=== PATIENT | male | born 1975 | race Caucasian/White ===

== ENCOUNTER 2017-10-12 13:44 | Emergency (ER) | payer SELFPAY ==
[2017-10-12 13:58] VITALS: BP 116/63
[2017-10-12] MEDS ORDERED: AMOXICILLIN TR/POT CLAVULANATE 500-125 MG TAB PO ONE (14:04)
[2017-10-12] MEDS ORDERED: AMOXICILLIN TRIHYDRATE 500 MG CAPSULE PO ONE (14:04)
--- NOTE | 2017-10-12 14:05 | ER Document Report ---
HPI - HPI Patient complains to provider of: Dog bite Onset: Just prior to arrival Pain Level: 4 Context: 42-year-old male was bitten by his own pit bull in the left upper arm because the dog was trying to get to a cat. The dog's immunizations are current and the patient's tetanus status is current. He is type I diabetic, no known allergies. Associated Symptoms: None Exacerbated by: Movement Relieved by: Denies Similar symptoms previously: No Recently seen / treated by doctor: No - ROS ROS below otherwise negative: Yes Systems Reviewed and Negative: Yes All other systems reviewed and negative Past Medical History - General Information source: Patient - Social History Smoking Status: Current Every Day Smoker Frequency of alcohol use: None Drug Abuse: None Lives with: Family Family History: Reviewed & Not Pertinent - Medical History Medical History: Negative Surgical Hx: Negative Vertical Provider Document - CONSTITUTIONAL Agree With Documented VS: Yes Exam Limitations: No Limitations General Appearance: No Apparent Distress - INFECTION CONTROL TRAVEL OUTSIDE OF THE [place] IN LAST 30 DAYS: No - HEENT HEENT: Normocephalic - NECK Neck: Supple - MUSCULOSKELETAL/EXTREMETIES Musculoskeletal/Extremeties: Tender - No multiple open puncture wounds to left medial proximal upper arm and a tooth abrasion on the left chest - NEURO Level of Consciousness: Awake, Alert Motor/Sensory: No Motor Deficit, No Sensory Deficit - DERM Adult Front & Back Diagram: 1 - Dog bite area Notes: See above Course - Vital Signs Vital signs: Temp Pulse Resp BP Pulse Ox 98.7 F 98 16 116/63 100 10/12/17 13:57 10/12/17 13:57 10/12/17 13:57 10/12/17 13:57 10/12/17 13:57 Discharge - Discharge Clinical Impression: dogbite left upper chest Dog bite of left upper arm Qualifiers: Encounter type: initial encounter Qualified Code(s): S41.152A - Open bite of left upper arm, initial encounter Condition: Good Disposition: HOME, SELF-CARE Instructions: Animal Bites ([facility]), Augmentin ([facility]) Additional Instructions: Wound check in 48 hours unless it gets worse in the next day and watch her back in the emergency room Shower with soap and water bacitracin and dressing Augmentin until it is gone Prescriptions: Amoxicillin/Potassium Clav [Augmentin 875-125 Tablet] 1 each PO BID #14 tablet Forms: Return to Work
== END 2017-10-12 14:35 | disposition home or self-care (01) ==
LOC: ER 13:44
DX: S41.152A Open bite of left upper arm, initial encounter (principal); S21.152A Open bite of left front wall of thorax without penetration into thoracic cavity, initial encounter; W54.0XXA Bitten by dog, initial encounter; Y92.009 Unspecified place in unspecified non-institutional (private) residence as the place of occurrence of the external cause; F17.210 Nicotine dependence, cigarettes, uncomplicated
CPT/HCPCS: 99283

== ENCOUNTER 2018-03-04 01:33 | Emergency (ER) | payer SELFPAY ==
[2018-03-04] MEDS ORDERED: ONDANSETRON HCL INJ/PF 4 MG/2 ML SDV IV ONE (03:03)
[2018-03-04] MEDS ORDERED: NORMAL SALINE 1000 ML 1,000 ML IV ONE (03:03)
[2018-03-04] MEDS ORDERED: KETOROLAC TROMETHAMINE INJ/PF 30 MG/1 ML SDV IV ONE (03:03)
[2018-03-04 03:15] LABS: ABSOLUTE BASOPHILS # (AUTO) 0.1 10^3/uL (0.0-0.2); ABSOLUTE EOSINOPHILS # (AUTO) 0.1 10^3/uL (0.0-0.6); ABSOLUTE LYMPHOCYTES (AUTO) 2.1 10^3/uL (0.5-4.7); ABSOLUTE MONOCYTES (AUTO) 0.6 10^3/uL (0.1-1.4); ABSOLUTE NEUT (AUTO) 3.5 10^3/uL (1.7-8.2); BASOPHILS % (AUTO) 1.1 % (0-2); EOSINOPHILS % (AUTO) 1.8 % (0-6); HEMATOCRIT 38.3 % (37.9-51.0); HEMOGLOBIN 12.7 g/dL (13.5-17.0); LYMPHOCYTES % (AUTO) 33.4 % (13-45); MEAN CORPUSCULAR HEMOGLOBIN 28.2 pg (27.0-33.4); MEAN CORPUSCULAR HGB CONC 33.2 g/dL (32.0-36.0); MEAN CORPUSCULAR VOLUME 85 fl (80-97); MONOCYTES % (AUTO) 9.1 % (3-13); PLATELET COUNT 199 10^3/uL (150-450); RED BLOOD COUNT 4.52 10^6/uL (4.35-5.55); RED CELL DISTRIBUTION WIDTH 15.2 % (11.5-14.0); SEGMENTED NEUTROPHILS % (AUTO) 54.6 % (42-78); TOTAL CELLS COUNTED % (AUTO) 100 %; WHITE BLOOD COUNT 6.4 10^3/uL (4.0-10.5)
--- NOTE | 2018-03-04 03:19 | ER Document Report ---
ED GI/ - General Chief Complaint: Possible Kidney Stone Stated Complaint: FLANK PAIN Time Seen by Provider: 03/04/18 02:40 Mode of Arrival: Ambulatory Information source: Patient TRAVEL OUTSIDE OF THE [place] IN LAST 30 DAYS: No - HPI Patient complains to provider of: Flank pain, Vomiting Onset: This evening Timing/Duration: Gradual Quality of pain: Achy, Pressure, Sharp Severity at maximum: Severe Severity in ED: Severe Pain Level: 5 Location: Left flank Associated symptoms: Nausea, Vomiting Exacerbated by: Denies Relieved by: Denies Similar symptoms previously: Yes Recently seen / treated by doctor: No Notes: 03/04/18 03:18 Patient is a 42-year-old male presenting to the emergency room complaining of left-sided flank pain that started earlier this evening, he reports associated nausea and vomiting, history of multiple kidney stones in the past with similar symptoms, twice in the past he is required a procedure to assist in removal or passage of a kidney stone, he denies any fevers, no hematuria or difficulty urinating today - Related Data Allergies/Adverse Reactions: No Known Allergies Allergy (Unverified 10/12/17 13:46) Past Medical History - General Information source: Patient - Social History Smoking Status: Former Smoker Chew tobacco use (# tins/day): No Drug Abuse: None Family History: Reviewed & Not Pertinent Patient has suicidal ideation: No Patient has homicidal ideation: No - Past Medical History Cardiac Medical History: Reports: Hx Hypertension Endocrine Medical History: Reports: Hx Diabetes Mellitus Type 1 Renal/ Medical History: Reports: Hx Kidney Stones. Denies: Hx Peritoneal Dialysis Past Surgical History: Reports: Hx Kidney (Renal Surgery) Review of Systems - Review of Systems Constitutional: No symptoms reported EENT: No symptoms reported Cardiovascular: No symptoms reported Respiratory: No symptoms reported Gastrointestinal: See HPI Genitourinary: See HPI Male Genitourinary: No symptoms reported Musculoskeletal: No symptoms reported Skin: No symptoms reported Hematologic/Lymphatic: No symptoms reported Neurological/Psychological: No symptoms reported -: Yes All other systems reviewed and negative Physical Exam - Vital signs Vitals: Temp Pulse BP Pulse Ox 97.6 F 94 109/70 98 03/04/18 02:33 03/04/18 02:33 03/04/18 02:33 03/04/18 02:33 Interpretation: Normal - General General appearance: Alert, Other - Appears in pain In distress: Mild - HEENT Head: Normocephalic, Atraumatic Eyes: Normal Pupils: PERRL - Respiratory Respiratory status: No respiratory distress Chest status: Nontender Breath sounds: Normal Chest palpation: Normal - Cardiovascular Rhythm: Regular Heart sounds: Normal auscultation Murmur: No - Abdominal Inspection: Normal Distension: No distension Bowel sounds: Normal Tenderness: Nontender Organomegaly: No organomegaly - Back Back: Normal, Nontender - Extremities General upper extremity: Normal inspection, Nontender, Normal color, Normal ROM , Normal temperature General lower extremity: Normal inspection, Nontender, Normal color, Normal ROM , Normal temperature, Normal weight bearing. No: Abel's sign - Neurological Neuro grossly intact: Yes Cognition: Normal Orientation: AAOx4 Randa Coma Scale Eye Opening: Spontaneous [place] Coma Scale Verbal: Oriented [place] Coma Scale Motor: Obeys Commands Randa Coma Scale Total: 15 Speech: Normal Motor strength normal: LUE, RUE, LLE, RLE Sensory: Normal - Psychological Associated symptoms: Normal affect, Normal mood - Skin Skin Temperature: Warm Skin Moisture: Dry Skin Color: Normal Course - Re-evaluation Re-evalutation: 03/04/18 06:08 Patient is a 42-year-old male with left-sided flank pain, consistent with kidney stones which she has had multiple times in the past, on labs he was noted to have a elevated creatinine at 1.5, he is unaware of what his creatinine has been in the past, he is passing urine and denies any hematuria, I did discuss with him the possibility of expectant treatment versus imaging today, since he has had 2 kidney stones in the past that have required surgical removal or procedure he requested having a CT performed today, CT scan shows a 3 mm stone in the left mid ureter, patient will be discharged with prescription for medications for symptom control as well as prophylactic antibiotics and advised to follow-up with urology within the next 2-3 days or return if symptoms worsen in any way, patient acknowledges understanding and agreement with this plan - Vital Signs Vital signs: Temp Pulse Resp BP Pulse Ox 97.6 F 94 109/70 98 03/04/18 02:33 03/04/18 02:33 03/04/18 02:33 03/04/18 02:33 - Laboratory Result Diagrams: 03/04/18 02:51 03/04/18 02:51 Laboratory results interpreted by me: 10/17/18 10/17/18 10/17/18 02:51 02:51 02:51 Hgb 12.7 L RDW 15.2 H BUN 25 H Creatinine 1.51 H Est GFR (Non-Af Amer) 51 L Glucose 186 H Alkaline Phosphatase 138 H Urine Glucose (UA) >=500 H - Diagnostic Test Radiology reviewed: Reports reviewed Discharge - Discharge Clinical Impression: Kidney stone on left side Condition: Stable Disposition: HOME, SELF-CARE Instructions: Kidney Stone ([facility]) Additional Instructions: Follow up with your primary care provider and a urologist in one to 2 days. Return to the emergency room immediately if symptoms worsen or any additional concerns. Prescriptions: Cephalexin Monohydrate [Keflex 500 mg Capsule] 500 mg PO BID #20 capsule Hydrocodone/Acetaminophen [Hydrocodon-Acetaminophen 5-325] 1 each PO Q6 #10 tablet Ondansetron [Zofran Odt 4 mg Tablet] 1 - 2 tab PO Q4H #10 tab.rapdis Tamsulosin HCl [Flomax 0.4 mg Cap.sr] 0.4 mg PO DAILY #7 cap.sr.24h Referrals: JEMAL GOMES MD [NO LOCAL MD] - Follow up as needed KARLA STOVALL [NO LOCAL MD] - Follow up as needed
[2018-03-04 03:37] LABS: APPEARANCE,URINE CLEAR; BILIRUBIN,URINE NEGATIVE (NEGATIVE); COLOR,URINE YELLOW; GLUCOSE, URINE >=500 mg/dL (NEGATIVE); KETONES,URINE NEGATIVE (NEGATIVE); LEUKOCYTE ESTERASE,URINE NEGATIVE (NEGATIVE); NITRITE,URINE NEGATIVE (NEGATIVE); PROTEIN,URINE NEGATIVE (NEGATIVE); URINE SPECIFIC GRAVITY 1.026; UROBILINOGEN,URINE NEGATIVE mg/dL (<2.0)
[2018-03-04 03:42] LABS: ALANINE AMINOTRANSFERASE 27 U/L (21-72); ALKALINE PHOSPHATASE 138 U/L (38-126); ANION GAP 12 (5-19); ASPARTATE AMINO TRANSFERASE 29 U/L (17-59); BILIRUBIN,DIRECT 0.2 mg/dL (0.0-0.4); BILIRUBIN,TOTAL 0.5 mg/dL (0.2-1.3); BLOOD UREA NITROGEN 25 mg/dL (7-20); CALCIUM 9.4 mg/dL (8.4-10.2); CARBON DIOXIDE 22 mmol/L (22-30); CHLORIDE 106 mmol/L (98-107); GLUCOSE 186 mg/dL (75-110); LIPASE 49.5 U/L (23-300); POTASSIUM 4.6 mmol/L (3.6-5.0); SODIUM 139.6 mmol/L (137-145); TOTAL PROTEIN 6.8 g/dL (6.3-8.2)
--- NOTE | 2018-03-04 04:48 | RADIOLOGY REPORT (SQ) ---
EXAM DESCRIPTION: CT ABDOMEN WITHOUT IV CONTRAST COMPLETED DATE/TME: 03/04/2018 04:11 CLINICAL HISTORY: L flank pain COMPARISON: None Available. TECHNIQUE: CT of the abdomen and pelvis without IV contrast. Evaluation of the solid organs and vasculature is suboptimal due to lack of IV contrast. DLP: 397.16 mGy-cm FINDINGS: Lung Bases: The visualized lung bases are clear. Bones: No destructive bone lesions identified. Abdomen: Liver: The liver has normal size and density. Gallbladder: No calcified gallstones. Spleen, Pancreas, and Adrenal Glands: The spleen, pancreas, and adrenal glands are unremarkable. Kidneys: There is a 0.3 cm second calculus in the mid left ureter producing moderate left hydroureter and hydronephrosis. Multiple nonobstructing right nephrolithiasis, the largest is in the inferior pole of the right kidney measuring 0.9 cm. Vasculature: Aortoiliac atherosclerosis. Left-sided IVC. Stomach: Small hiatal hernia. Other: No free intraperitoneal air. No free fluid or lymphadenopathy. Pelvis: Bladder: Urinary bladder is unremarkable. Bowel: No dilated loops of large or small bowel. Appendix: The appendix is not definitely identified. Pelvis: The prostate is not enlarged. IMPRESSION: 1. There is a 0.3 cm obstructing calculus in the mid left ureter producing moderate left hydroureter and hydronephrosis. 2. Multiple bilateral nonobstructing right renal calculi. This exam was performed according to our departmental dose-optimization program, which includes automated exposure control, adjustment of the mA and/or kV according to patient size and/or use of iterative reconstruction technique.
[2018-03-04 06:32] VITALS: BP 105/59
== END 2018-03-04 05:30 | disposition home or self-care (01) ==
LOC: ER 01:33
DX: N20.0 Calculus of kidney (principal); R10.9 Unspecified abdominal pain; R11.2 Nausea with vomiting, unspecified; Z87.891 Personal history of nicotine dependence; I10 Essential (primary) hypertension; E10.9 Type 1 diabetes mellitus without complications
CPT/HCPCS: 99284; 96361; 96374; 96375; 36415; 83690; 85025; 80053; 81001; 76380; J1885; J2405; J7030

== ENCOUNTER 2018-03-05 22:06 | Emergency (ER) | payer SELFPAY ==
[2018-03-05 22:47] LABS: APPEARANCE,URINE CLEAR; BILIRUBIN,URINE NEGATIVE (NEGATIVE); COLOR,URINE STRAW; GLUCOSE, URINE >=500 mg/dL (NEGATIVE); KETONES,URINE NEGATIVE (NEGATIVE); LEUKOCYTE ESTERASE,URINE NEGATIVE (NEGATIVE); NITRITE,URINE NEGATIVE (NEGATIVE); PROTEIN,URINE NEGATIVE (NEGATIVE); URINE SPECIFIC GRAVITY 1.007; UROBILINOGEN,URINE NEGATIVE mg/dL (<2.0)
[2018-03-05] MEDS ORDERED: HYDROCODONE/ACETAMINOPHEN 5-325 MG (6 TAB/ER DISP) PO PRN (23:01)
[2018-03-05] MEDS ORDERED: KETOROLAC TROMETHAMINE 60 MG/2 ML SDV IM ONE (23:01)
[2018-03-05] MEDS ORDERED: OXYCODONE-ACETAMINOPHEN 5-325 MG TABLET PO ONE (23:02)
--- NOTE | 2018-03-05 23:04 | ER Document Report ---
ED GI/ - General Chief Complaint: Flank Pain Stated Complaint: FLANK PAINS Time Seen by Provider: 03/05/18 23:01 Mode of Arrival: Ambulatory Information source: Patient TRAVEL OUTSIDE OF THE [place] IN LAST 30 DAYS: No - HPI Patient complains to provider of: Flank pain Onset: Yesterday Timing/Duration: Persistent Quality of pain: Sharp, Stabbing Severity at maximum: Severe Severity in ED: Severe Pain Level: 5 Location: Left flank Associated symptoms: Hematuria, Nausea Exacerbated by: Denies Relieved by: Denies Similar symptoms previously: Yes Recently seen / treated by doctor: Yes Notes: 03/06/18 00:20 Patient is a 42-year-old male who presents to the emergency room today complaining of left-sided flank pain, he has a history of multiple kidney stones in the past and in fact was seen in this department yesterday, a left mid ureteral stone measuring 3 [address] was noted [address] scan, he was given a prescription for small amount of pain medication which he has taken all of already secondary to his pain, his pain persisted and he has not yet passed the stone, he has occasional nausea but no fever, no vomiting, he is able to pass urine without difficulty, has not yet been seen by a urologist, returns today just requesting additional pain medication - Related Data Allergies/Adverse Reactions: No Known Allergies Allergy (Unverified 10/12/17 13:46) Past Medical History - General Information source: Patient - Social History Smoking Status: Unknown if Ever Smoked Family History: Reviewed & Not Pertinent - Past Medical History Cardiac Medical History: Reports: Hx Hypertension Endocrine Medical History: Reports: Hx Diabetes Mellitus Type 1 Renal/ Medical History: Reports: Hx Kidney Stones. Denies: Hx Peritoneal Dialysis Past Surgical History: Reports: Hx Kidney (Renal Surgery) Review of Systems - Review of Systems Constitutional: No symptoms reported EENT: No symptoms reported Cardiovascular: No symptoms reported Respiratory: No symptoms reported Gastrointestinal: Nausea Genitourinary: See HPI Male Genitourinary: No symptoms reported Musculoskeletal: No symptoms reported Skin: No symptoms reported Hematologic/Lymphatic: No symptoms reported Neurological/Psychological: No symptoms reported -: Yes All other systems reviewed and negative Physical Exam - Vital signs Vitals: Temp Pulse Resp BP Pulse Ox 98.2 F 73 18 122/99 H 100 03/05/18 22:06 03/05/18 22:06 03/05/18 22:06 03/05/18 22:06 03/05/18 22:06 - Notes Notes: - General General appearance: Appears in pain, Alert In distress: None - HEENT Head: Normocephalic, Atraumatic Eyes: Normal Conjunctiva: Normal Extraocular movements intact: Yes Eyelashes: Normal Pupils: PERRL - Respiratory Respiratory status: No respiratory distress - Cardiovascular Rhythm: Regular - Abdominal Inspection: Normal - Back Back: Normal - Extremities General upper extremity: Normal inspection General lower extremity: Normal inspection - Neurological Neuro grossly intact: Yes Orientation: AAOx4 [place] Coma Scale Eye Opening: Spontaneous [place] Coma Scale Verbal: Oriented [place] Coma Scale Motor: Obeys Commands [place] Coma Scale Total: 15 - Psychological Associated symptoms: Normal affect, Normal mood - Skin Skin Temperature: Warm Skin Moisture: Dry Skin Color: Normal Course - Re-evaluation Re-evalutation: 03/06/18 00:22 Patient given Toradol and Percocet in the emergency department, reports feeling much better, given approved prescription for a small amount of additional pain medication for at home use, advised to follow-up with a urologist or return if symptoms worsen, patient acknowledges understanding and agreement with this plan - Vital Signs Vital signs: Temp Pulse Resp BP Pulse Ox 98.2 F 53 L 16 100/53 L 99 03/05/18 22:06 03/05/18 23:19 03/05/18 23:19 03/05/18 23:19 03/05/18 23:19 - Laboratory Laboratory results interpreted by me: 03/05/18 22:17 Urine Glucose (UA) >=500 H Urine Blood MODERATE H Discharge - Discharge Clinical Impression: Kidney stone on left side Condition: Stable Disposition: HOME, SELF-CARE Instructions: Kidney Stone ([facility]) Additional Instructions: Follow up with your urologist in 2-3 days. Return to the ER if symptoms worsen or any additional concerns. Prescriptions: Oxycodone HCl/Acetaminophen [Percocet 5-325 mg Tablet] 1 - 2 tab PO ASDIR PRN # 15 tablet PRN Reason:
[2018-03-05 23:21] VITALS: BP 100/53
== END 2018-03-05 23:40 | disposition home or self-care (01) ==
LOC: ER 22:06
DX: N20.0 Calculus of kidney (principal); R10.9 Unspecified abdominal pain; R31.9 Hematuria, unspecified; R11.0 Nausea; I10 Essential (primary) hypertension; E10.9 Type 1 diabetes mellitus without complications; Z87.442 Personal history of urinary calculi
CPT/HCPCS: 99284; 96372; 81001; J1885

== ENCOUNTER 2018-07-01 19:07 | Observation (INO) | payer OTHER ==
[2018-07-01] MEDS ORDERED: ASPIRIN 81 MG TABLET, CHEWABLE PO ONE (19:49)
--- NOTE | 2018-07-01 19:50 | ER Document Report ---
ED Medical Screen (RME) - General Chief Complaint: Palpitations Stated Complaint: SHORTNESS OF BREATH Time Seen by Provider: 07/01/18 19:46 Notes: Chief complaint: Chest pain History of complain:( obtained from----patient) 43 years old male with a extensive history of coronary artery disease. Had IN at 20, had 2 bypass surgery, 7 stents. Presents today with orthopnea, shortness of breath on exertion as well as chest discomfort for the last couple of days. PHYSICAL EXAMINATION: GENERAL: Well-appearing, well-nourished and in no acute distress. HEAD: Atraumatic, normocephalic. EYES: Pupils equal round and reactive to light, extraocular movements intact, conjunctiva are normal. ENT: Nares patent, oropharynx clear without exudates. Moist mucous membranes. NECK: Normal range of motion, supple without lymphadenopathy LUNGS: Breath sounds clear to auscultation bilaterally and equal. No wheezes rales or rhonchi. HEART: Regular rate and rhythm without murmurs ABDOMEN: Soft, nontender, nondistended abdomen. No guarding, no rebound. No masses appreciated. Examination of genitals-deferred Musculoskeletal: Normal range of motion, no pitting or edema. No cyanosis. NEUROLOGICAL: Cranial nerves grossly intact. Normal speech, normal gait. Normal sensory, motor exams PSYCH: Normal mood, normal affect. SKIN: Warm, Dry, normal turgor, no rashes or lesions noted. Dictation was performed using [employer] voice recognition software TRAVEL OUTSIDE OF THE [place] IN LAST 30 DAYS: No - Related Data Allergies/Adverse Reactions: No Known Allergies Allergy (Verified 07/01/18 19:09) Past Medical History - Past Medical History Cardiac Medical History: Reports: Hx Hypertension Endocrine Medical History: Reports: Hx Diabetes Mellitus Type 1 Renal/ Medical History: Reports: Hx Kidney Stones. Denies: Hx Peritoneal Dialysis Past Surgical History: Reports: Hx Kidney (Renal Surgery) Physical Exam - Vital signs Vitals: Temp Pulse Resp BP Pulse Ox 98.6 F 80 14 150/72 H 99 07/01/18 19:24 07/01/18 19:24 07/01/18 19:24 07/01/18 19:24 07/01/18 19:24 Course - Vital Signs Vital signs: Temp Pulse Resp BP Pulse Ox 98.6 F 80 14 150/72 H 99 07/01/18 19:24 07/01/18 19:24 07/01/18 19:24 07/01/18 19:24 07/01/18 19:24
--- NOTE | 2018-07-01 20:39 | RADIOLOGY REPORT (SQ) ---
XR CHEST 1 VIEW HISTORY: Chest pain. COMPARISON: None. FINDINGS: The heart size is normal. The lungs are clear. No pleural effusions or pneumothorax is seen. No acute bony findings. IMPRESSION: No evidence of acute cardiopulmonary disease.
[2018-07-01 21:38] LABS: ABSOLUTE EOSINOPHILS # (AUTO) 0.3 10^3/uL (0.0-0.6); ABSOLUTE LYMPHOCYTES (AUTO) 2.4 10^3/uL (0.5-4.7); ABSOLUTE MONOCYTES (AUTO) 0.6 10^3/uL (0.1-1.4); ABSOLUTE NEUT (AUTO) 4.1 10^3/uL (1.7-8.2); BASOPHILS % (AUTO) 0.7 % (0-2); EOSINOPHILS % (AUTO) 3.4 % (0-6); HEMATOCRIT 37.8 % (37.9-51.0); HEMOGLOBIN 12.4 g/dL (13.5-17.0); LYMPHOCYTES % (AUTO) 32.1 % (13-45); MEAN CORPUSCULAR HEMOGLOBIN 26.8 pg (27.0-33.4); MEAN CORPUSCULAR HGB CONC 32.8 g/dL (32.0-36.0); MEAN CORPUSCULAR VOLUME 82 fl (80-97); MONOCYTES % (AUTO) 8.2 % (3-13); PLATELET COUNT 236 10^3/uL (150-450); RED BLOOD COUNT 4.64 10^6/uL (4.35-5.55); RED CELL DISTRIBUTION WIDTH 14.5 % (11.5-14.0); SEGMENTED NEUTROPHILS % (AUTO) 55.6 % (42-78); TOTAL CELLS COUNTED % (AUTO) 100 %; WHITE BLOOD COUNT 7.4 10^3/uL (4.0-10.5)
[2018-07-01 21:55] LABS: ALANINE AMINOTRANSFERASE 28 U/L (21-72); ALBUMIN 4.6 g/dL (3.5-5.0); ALKALINE PHOSPHATASE 161 U/L (38-126); ANION GAP 10 (5-19); ASPARTATE AMINO TRANSFERASE 43 U/L (17-59); BILIRUBIN,DIRECT 0.3 mg/dL (0.0-0.4); BILIRUBIN,TOTAL 0.6 mg/dL (0.2-1.3); BLOOD UREA NITROGEN 21 mg/dL (7-20); CALCIUM 9.3 mg/dL (8.4-10.2); CARBON DIOXIDE 25 mmol/L (22-30); CHLORIDE 106 mmol/L (98-107); CREATINE KINASE 91 U/L (55-170); GLUCOSE 194 mg/dL (75-110); POTASSIUM 4.3 mmol/L (3.6-5.0); SODIUM 141.4 mmol/L (137-145); TOTAL PROTEIN 7.9 g/dL (6.3-8.2)
[2018-07-01 22:05] LABS: CREATINE KINASE MB 0.61 ng/mL (<4.55)
[2018-07-01 22:06] LABS: TROPONIN I < 0.012 ng/mL
[2018-07-02] MEDS ORDERED: DEXTROSE 50%-WATER 25 GM/50 ML DISP.SYRIN IV PRN ×2 (00:04)
[2018-07-02] MEDS ORDERED: GLUCAGON,HUMAN RECOMB 1 MG INJ IM PRN (00:04)
[2018-07-02] MEDS ORDERED: DEXTROSE 40% GEL 15 GM TUBE PO PRN ×2 (00:04)
[2018-07-02] MEDS ORDERED: MAG HYDROX/AL HYDROX/SIMETH SUSP 30 ML UDCUP PO PRN (00:04)
[2018-07-02] MEDS ORDERED: NITROGLYCERIN 0.4 MG/TAB 25 TAB/BOTTLE SL PRN (00:04)
--- NOTE | 2018-07-02 00:22 | EKG REPORT ---
SEVERITY:- BORDERLINE ECG - SINUS RHYTHM MARKEDLY POSTERIOR QRS AXIS : Confirmed by: Jud Lima MD 02-Jul-2018 00:22:13
[2018-07-02] MEDS ORDERED: ATORVASTATIN CALCIUM 80 MG TABLET PO ONE (00:30)
--- NOTE | 2018-07-02 00:39 | ER Document Report ---
Entered by PIOTR ROLDAN SCRIBE 07/01/18 [id number] Acting as scribe for:ANDREW HICKS DO ED General - General Chief Complaint: Palpitations Stated Complaint: SHORTNESS OF BREATH Time Seen by Provider: 07/01/18 19:46 Mode of Arrival: Ambulatory Information source: Patient Notes: Patient is a 43 year old male with an extensive cardiac history( several bypasses, 7 stents), insulin dependent diabetes presents to the emergency department complaining of chest pain and shortness of breath onset 2 days ago. He states he can not walk to the bathroom and back without becoming short of breath and states his chest pain is located on the left side, anteriorly, does not radiate to his arms, does radiate slightly to the left side of his neck. He also states he is unable to sleep due to his heart racing. He states his symptoms feel similar to his previous heart attack before he had several bypasses. Patient states he follows up with a converter operator in [place], [place]. Patient reports being complaint with all of his medications. TRAVEL OUTSIDE OF THE [place] IN LAST 30 DAYS: No - Related Data Allergies/Adverse Reactions: No Known Allergies Allergy (Verified 07/01/18 19:09) Past Medical History - General Information source: Patient - Social History Smoking Status: Former Smoker Cigarette use (# per day): No Chew tobacco use (# tins/day): No Smoking Education Provided: No Frequency of alcohol use: Social Drug Abuse: Marijuana Family History: Reviewed & Not Pertinent Patient has suicidal ideation: No Patient has homicidal ideation: No - Past Medical History Cardiac Medical History: Reports: Hx Hypertension Endocrine Medical History: Reports: Hx Diabetes Mellitus Type 1 Renal/ Medical History: Reports: Hx Kidney Stones Past Surgical History: Reports: Hx Kidney (Renal Surgery) Review of Systems - Review of Systems Constitutional: No symptoms reported EENT: No symptoms reported Cardiovascular: See HPI, Chest pain Respiratory: See HPI, Short of breath Gastrointestinal: No symptoms reported Genitourinary: No symptoms reported Male Genitourinary: No symptoms reported Musculoskeletal: No symptoms reported Skin: No symptoms reported Hematologic/Lymphatic: No symptoms reported Neurological/Psychological: No symptoms reported Physical Exam - Vital signs Vitals: Temp Pulse Resp BP Pulse Ox 98.6 F 80 14 150/72 H 99 07/01/18 19:24 07/01/18 19:24 07/01/18 19:24 07/01/18 19:24 07/01/18 19:24 - Notes Notes: GENERAL: Alert, interacts well. No acute distress. HEAD: Normocephalic, atraumatic. EYES: Pupils equal, round, and reactive to light. Extraocular movements intact. ENT: Oral mucosa moist, tongue midline. NECK: Full range of motion. Supple. Trachea midline. LUNGS: Clear to auscultation bilaterally, no wheezes, rales, or rhonchi. No respiratory distress. HEART: Regular rate and rhythm. No murmurs, gallops, or rubs. ABDOMEN: Soft, non-tender. Non-distended. Bowel sounds present in all 4 quadrants. EXTREMITIES: Moves all 4 extremities spontaneously. NEUROLOGICAL: Alert and oriented x3. Normal speech. PSYCH: Normal affect, normal mood. SKIN: Warm, dry, normal turgor. No rashes or lesions noted. Course - Re-evaluation Re-evalutation: 07/01/18 23:57 CBC shows mild anemia with hemoglobin 12.4 otherwise unremarkable, BUN and creatinine are elevated at 21 and 1.48, no significant change from February, cardiac enzymes initially negative, chest x-ray shows no acute process, EKG is nonischemic. Given the patient's extensive cardiac history patient was discussed with Dr. Deleon who agrees to place patient on his service on the telemetry care unit as an observation for chest pain rule out. Patient is currently pain-free. - Vital Signs Vital signs: Temp Pulse Resp BP Pulse Ox 98.6 F 65 19 131/61 H 100 07/02/18 02:49 07/02/18 02:49 07/02/18 02:49 07/02/18 02:49 07/02/18 02:49 - Laboratory Result Diagrams: 07/01/18 21:00 07/01/18 21:00 Laboratory results interpreted by me: 07/01/18 07/01/18 21:00 21:00 Hgb 12.4 L Hct 37.8 L MCH 26.8 L RDW 14.5 H BUN 21 H Creatinine 1.48 H Est GFR (Non-Af Amer) 52 L Glucose 194 H Alkaline Phosphatase 161 H - EKG Interpretation by Me Additional EKG results interpreted by me: 07/01/18 23:57 EKG shows sinus rhythm rate of 89, borderline left anterior hemiblock, normal R wave progression, no ST segment elevations or depressions, no T wave inversions per my interpretation. Discharge - Discharge Clinical Impression: Chest pain, rule out acute myocardial infarction Condition: Fair Disposition: ADMITTED OBSERVATION [facility] Admitted: Telemetry Scribe Attestation: 07/02/18 04:24 I personally performed the services described in the documentation, reviewed and edited the documentation which was dictated to the scribe in my presence, and it accurately records my words and actions. I personally performed the services described in the documentation, reviewed and edited the documentation which was dictated to the scribe in my presence, and it accurately records my words and actions.
[2018-07-02 03:57] LABS: CHOLESTEROL 130.54 mg/dL (0-200); TRIGLYCERIDES 67 mg/dL (<150)
[2018-07-02 04:08] LABS: CREATINE KINASE MB 0.47 ng/mL (<4.55); DIRECT LDL 77 mg/dL (<100)
[2018-07-02 04:10] LABS: TROPONIN I < 0.012 ng/mL
--- NOTE | 2018-07-02 06:01 | PDOC H&P ---
History of Present Illness Admission Date/PCP: 07/02/18 00:09 Patient complains of: Chest pain History of Present Illness: KARLA MURILLO is a 43 year old male with a past medical history of poorly controlled type 1 diabetes resulting in coronary artery disease status post several bypasses last 4 years ago and subsequent stenting x7. Patient admits chest pain with palpitations, shortness of breath times 48 hours. His chest pain is described as dull and 2 out of 5 intensity radiating to his left side and neck. He denies recent change of medications, nausea or vomiting, orthopnea, edema or uncontrolled blood pressure. 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 Past Medical History Cardiac Medical History: Reports: Myocardial Infarction - CABG x2, Hypertension Pulmonary Medical History: Reports: None EENT Medical History: Reports: None Neurological Medical History: Reports: None Endocrine Medical History: Reports: Diabetes Mellitus Type 1 Renal/ Medical History: Reports: None Malignancy Medical History: Reports: None GI Medical History: Reports: Gastroesophageal Reflux Disease Musculoskeltal Medical History: Reports: None Skin Medical History: Reports: None Psychiatric Medical History: Reports: None Traumatic Medical History: Reports: None Hematology: Reports: None Infectious Medical History: Reports: None Past Surgical History Past Surgical History: Reports: Cardiac Catheterization, Coronary Artery Bypass Graft, Coronary Stent Social History Information Source: Patient Smoking Status: Former Smoker Frequency of Alcohol Use: None Drugs: None - Advance Directive Resuscitation Status: Full Code Family History Family History: Hypertension Parental Family History Reviewed: Yes Children Family History Reviewed: Yes Sibling(s) Family History Reviewed.: Yes Medication/Allergy Home Medications: Hydrocodone/Acetaminophen [Hydrocodon-Acetaminophen 5-325] 1 each PO Q6 #10 tablet 03/04/18 Ondansetron [Zofran Odt 4 mg Tablet] 1 - 2 tab PO Q4H #10 tab.rapdis 03/04/18 Tamsulosin HCl [Flomax 0.4 mg Cap.sr] 0.4 mg PO DAILY #7 cap.sr.24h 03/04/18 Oxycodone HCl/Acetaminophen [Percocet 5-325 mg Tablet] 1 - 2 tab PO ASDIR PRN #15 tablet 03/05/18 Amlodipine Besylate [Norvasc 2.5 mg Tablet] 2.5 mg PO DAILY 07/02/18 Atorvastatin Calcium [Lipitor 80 mg Tablet] PO DAILY 07/02/18 Clopidogrel Bisulfate [Plavix 75 mg Tablet] DAILY 07/02/18 Isosorbide Dinitrate 30 mg PO DAILY 07/02/18 Lisinopril [Prinivil] 5 mg PO DAILY 07/02/18 Omeprazole BID 07/02/18 Allergies/Adverse Reactions: No Known Allergies Allergy (Verified 07/01/18 19:09) Review of Systems Constitutional: ABSENT: chills, fever(s), headache(s), weight gain, weight loss Eyes: ABSENT: visual disturbances Ears: ABSENT: hearing changes Cardiovascular: ABSENT: chest pain, dyspnea on exertion, edema, orthropnea, palpitations Respiratory: ABSENT: cough, hemoptysis Gastrointestinal: ABSENT: abdominal pain, constipation, diarrhea, hematemesis, hematochezia, nausea, vomiting Genitourinary: ABSENT: dysuria, hematuria Musculoskeletal: ABSENT: joint swelling Integumentary: ABSENT: rash, wounds Neurological: ABSENT: abnormal gait, abnormal speech, confusion, dizziness, focal weakness, syncope Psychiatric: ABSENT: anxiety, depression, homidical ideation, suicidal ideation Endocrine: ABSENT: cold intolerance, heat intolerance, polydipsia, polyuria Hematologic/Lymphatic: ABSENT: easy bleeding, easy bruising Physical Exam Vital Signs: Temp Pulse Resp BP Pulse Ox 98.6 F 65 19 131/61 H 100 07/02/18 02:49 07/02/18 02:49 07/02/18 02:49 07/02/18 02:49 07/02/18 02:49 Intake & Output 06/30/18 07/01/18 07/02/18 11:59 11:59 11:59 Weight 73.5 kg General appearance: PRESENT: no acute distress, well-developed, well-nourished Head exam: PRESENT: atraumatic, normocephalic Eye exam: PRESENT: conjunctiva pink, EOMI, PERRLA. ABSENT: scleral icterus Ear exam: PRESENT: normal external ear exam Mouth exam: PRESENT: moist, tongue midline Neck exam: ABSENT: carotid bruit, JVD, lymphadenopathy, thyromegaly Respiratory exam: PRESENT: clear to auscultation kerrie. ABSENT: rales, rhonchi, wheezes Cardiovascular exam: PRESENT: RRR. ABSENT: diastolic murmur, rubs, systolic murmur Pulses: PRESENT: normal dorsalis pedis pul Vascular exam: PRESENT: normal capillary refill GI/Abdominal exam: PRESENT: normal bowel sounds, soft. ABSENT: distended, guarding, mass, organolmegaly, rebound, tenderness Rectal exam: PRESENT: deferred Extremities exam: PRESENT: full ROM. ABSENT: calf tenderness, clubbing, pedal edema Neurological exam: PRESENT: alert, awake, oriented to person, oriented to place, oriented to time, oriented to situation, CN II-XII grossly intact. ABSENT: motor sensory deficit Psychiatric exam: PRESENT: appropriate affect, normal mood. ABSENT: homicidal ideation, suicidal ideation Skin exam: PRESENT: dry, intact, warm. ABSENT: cyanosis, rash Results Laboratory Results: 07/01/18 21:00 07/01/18 21:00 07/01/18 07/01/18 07/02/18 21:00 21:00 03:21 WBC 7.4 RBC 4.64 Hgb 12.4 L Hct 37.8 L MCV 82 MCH 26.8 L MCHC 32.8 RDW 14.5 H Plt Count 236 Seg Neutrophils % 55.6 Lymphocytes % 32.1 Monocytes % 8.2 Eosinophils % 3.4 Basophils % 0.7 Absolute Neutrophils 4.1 Absolute Lymphocytes 2.4 Absolute Monocytes 0.6 Absolute Eosinophils 0.3 Absolute Basophils 0.0 Sodium 141.4 Potassium 4.3 Chloride 106 Carbon Dioxide 25 Anion Gap 10 BUN 21 H Creatinine 1.48 H Est GFR ( Amer) > 60 Est GFR (Non-Af Amer) 52 L Glucose 194 H Calcium 9.3 Total Bilirubin 0.6 AST 43 ALT 28 Alkaline Phosphatase 161 H Total Protein 7.9 Albumin 4.6 Triglycerides 67 Cholesterol 130.54 LDL Cholesterol Direct 77 VLDL Cholesterol 13.0 HDL Cholesterol 44 07/01/18 07/01/18 07/02/18 21:00 21:00 03:21 Creatine Kinase 91 CK-MB (CK-2) 0.61 0.47 Troponin I < 0.012 < 0.012 Impressions: Chest X-Ray 07/01/18 19:49 IMPRESSION: No evidence of acute cardiopulmonary disease. Assessment & Plan - Diagnosis (1) Chest pain, rule out acute myocardial infarction Is this a current diagnosis for this admission?: Yes Plan: Given history of multiple coronary artery bypass grafting with subsequent stenting I have discussed the case with Dr. Clarence correspondence school teacher at [facility] who recommends outpatient cardiac catheterization if troponin remains negative without recurrence of chest pain. Follow-up serial cardiac enzymes. (2) Diabetes Is this a current diagnosis for this admission?: Yes Plan: Last A1c was 7. Obtain medication reconciliation and resume, follow-up A1c - Time Time Spent: 50 to 70 Minutes
[2018-07-02] MEDS: INSULIN LISPRO 100 UNIT/ML 3 ML VIAL SUBCUT SCH ×2 (08:48→11:35)
[2018-07-02] MEDS ORDERED: DOCUSATE SODIUM 100 MG CAPSULE PO SCH (10:00)
[2018-07-02 11:02] LABS: CREATINE KINASE MB 0.46 ng/mL (<4.55)
[2018-07-02 11:03] LABS: TROPONIN I < 0.012 ng/mL
[2018-07-02] MEDS ORDERED: ACETAMINOPHEN 325 MG TABLET PO PRN (11:59)
--- NOTE | 2018-07-02 13:40 | PDOC DISCHARGE SUMMARY ---
General - Admit/Disc Date/PCP Admission Date/Primary Care Provider: 07/02/18 00:09 Discharge Date: 07/02/18 - Discharge Diagnosis (1) Chest pain Is this a current diagnosis for this admission?: Yes (2) CAD (coronary artery disease) Is this a current diagnosis for this admission?: Yes (3) dm Is this a current diagnosis for this admission?: Yes (4) Diabetes 1.5, managed as type 1 Is this a current diagnosis for this admission?: Yes - Additional Information Resuscitation Status: Full Code Home Medications: Tamsulosin HCl [Flomax 0.4 mg Cap.sr] 0.4 mg PO DAILY #7 cap.sr.24h 03/04/18 Amlodipine Besylate [Norvasc 2.5 mg Tablet] 2.5 mg PO DAILY 07/02/18 Aspirin [Ecotrin] 81 mg PO DAILY 07/02/18 Atorvastatin Calcium [Lipitor 80 mg Tablet] 80 mg PO DAILY 07/02/18 Clopidogrel Bisulfate [Plavix 75 mg Tablet] 75 mg PO DAILY 07/02/18 Insulin Aspart [Novolog Flexpen] See Protocol SQ AC 07/02/18 Insulin Detemir [Levemir] 35 units SQ QHS 07/02/18 Isosorbide Dinitrate 30 mg PO DAILY 07/02/18 Lisinopril [Prinivil] 5 mg PO DAILY 07/02/18 Omeprazole 40 mg PO Q12 07/02/18 History of Present Illness History of Present Illness: KARLA MURILLO is a 43 year old male Hospital Course Hospital Course: This is a very pleasant but unfortunate 43 years old male patient with past medical history of diabetes mellitus type 1 and coronary artery disease status post coronary artery bypass graft and multiple stent placement presented with chief complaint of chest pain. History set of cardiac enzymes are negative patient remained chest pain-free. The on-call attending physician discussed the case with Dr. Lima who recommended outpatient cardiac catheterization if his negative for remain negative and pain remained chest pain-free. This morning I seen patient resting in bed comfortably he is not in pain or distress. I will arrange follow-up with Dr. Lima as outpatient. Physical Exam Vital Signs: Temp Pulse Resp BP Pulse Ox 98.2 F 70 16 130/58 H 99 07/02/18 08:18 07/02/18 08:18 07/02/18 08:18 07/02/18 08:18 07/02/18 08:18 Intake & Output 07/01/18 07/02/18 07/03/18 06:59 06:59 06:59 Weight 72.5 kg General appearance: PRESENT: no acute distress, well-developed, well-nourished Head exam: PRESENT: atraumatic, normocephalic Eye exam: PRESENT: conjunctiva pink, EOMI, PERRLA. ABSENT: scleral icterus Ear exam: PRESENT: normal external ear exam Mouth exam: PRESENT: moist, tongue midline Neck exam: ABSENT: carotid bruit, JVD, lymphadenopathy, thyromegaly Respiratory exam: PRESENT: clear to auscultation kerrie. ABSENT: rales, rhonchi, wheezes Cardiovascular exam: PRESENT: RRR. ABSENT: diastolic murmur, rubs, systolic murmur Pulses: PRESENT: normal dorsalis pedis pul Vascular exam: PRESENT: normal capillary refill GI/Abdominal exam: PRESENT: normal bowel sounds, soft. ABSENT: distended, guarding, mass, organolmegaly, rebound, tenderness Rectal exam: PRESENT: deferred Extremities exam: PRESENT: full ROM. ABSENT: calf tenderness, clubbing, pedal edema Neurological exam: PRESENT: alert, awake, oriented to person, oriented to place, oriented to time, oriented to situation, CN II-XII grossly intact. ABSENT: motor sensory deficit Psychiatric exam: PRESENT: appropriate affect, normal mood. ABSENT: homicidal ideation, suicidal ideation Skin exam: PRESENT: dry, intact, warm. ABSENT: cyanosis, rash Results Laboratory Results: 07/01/18 21:00 07/01/18 21:00 07/01/18 07/01/18 07/02/18 21:00 21:00 03:21 WBC 7.4 RBC 4.64 Hgb 12.4 L Hct 37.8 L MCV 82 MCH 26.8 L MCHC 32.8 RDW 14.5 H Plt Count 236 Seg Neutrophils % 55.6 Lymphocytes % 32.1 Monocytes % 8.2 Eosinophils % 3.4 Basophils % 0.7 Absolute Neutrophils 4.1 Absolute Lymphocytes 2.4 Absolute Monocytes 0.6 Absolute Eosinophils 0.3 Absolute Basophils 0.0 Sodium 141.4 Potassium 4.3 Chloride 106 Carbon Dioxide 25 Anion Gap 10 BUN 21 H Creatinine 1.48 H Est GFR ( Amer) > 60 Est GFR (Non-Af Amer) 52 L Glucose 194 H Calcium 9.3 Total Bilirubin 0.6 AST 43 ALT 28 Alkaline Phosphatase 161 H Total Protein 7.9 Albumin 4.6 Triglycerides 67 Cholesterol 130.54 LDL Cholesterol Direct 77 VLDL Cholesterol 13.0 HDL Cholesterol 44 07/01/18 07/01/18 07/02/18 21:00 21:00 03:21 Creatine Kinase 91 CK-MB (CK-2) 0.61 0.47 Troponin I < 0.012 < 0.012 07/02/18 09:49 Creatine Kinase CK-MB (CK-2) 0.46 Troponin I < 0.012 Impressions: Chest X-Ray 07/01/18 19:49 IMPRESSION: No evidence of acute cardiopulmonary disease. Qualifiers - * PATIENT BEING DISCHARGED WITH ANY OF THE FOLLOWING DIAGNOSIS: No
[2018-07-02 14:45] VITALS: BP 131/61
[2018-07-02] MEDS ORDERED: ATORVASTATIN CALCIUM 80 MG TABLET PO SCH (22:00)
== END 2018-07-02 14:47 | disposition home or self-care (01) ==
LOC: ER 19:07 → EH 07-02 00:09 → 4S 07-02 02:39
PROVIDERS: ADMIT Internal Medicine; ATTEND Internal Medicine
DX: R07.9 Chest pain, unspecified (principal); I25.10 Atherosclerotic heart disease of native coronary artery without angina pectoris; E13.9 Other specified diabetes mellitus without complications; I10 Essential (primary) hypertension; R06.02 Shortness of breath; F12.10 Cannabis abuse, uncomplicated; D64.9 Anemia, unspecified; R06.01 Orthopnea; R00.2 Palpitations; I25.2 Old myocardial infarction; Z79.899 Other long term (current) drug therapy; Z79.82 Long term (current) use of aspirin; Z79.02 Long term (current) use of antithrombotics/antiplatelets; Z79.4 Long term (current) use of insulin; Z95.5 Presence of coronary angioplasty implant and graft; Z95.1 Presence of aortocoronary bypass graft; Z87.891 Personal history of nicotine dependence; Z82.49 Family history of ischemic heart disease and other diseases of the circulatory system; Z23 Encounter for immunization
CPT/HCPCS: 93005; 99285; 36415 ×2; 82553 ×2; 82962; 82550; 85025; 80053; 84484 ×2; 80061; 71045; 90686; 93010; G0008; J1815; 90471

== ENCOUNTER → 2018-07-17 | Outpatient (CLI) | payer OTHER | LOC: OD 13:08 | DX: E11.8 Type 2 diabetes mellitus with unspecified complications (principal) | CPT/HCPCS: 36415; 83036 ==

== ENCOUNTER 2019-11-30 12:17 | Emergency (ER) | payer MEDICARE, MEDICAID ==
[2019-11-30] MEDS ORDERED: KETOROLAC TROMETHAMINE INJ/PF 30 MG/1 ML SDV IV ONE ×2 (12:43→16:00)
[2019-11-30] MEDS ORDERED: NORMAL SALINE 1000 ML 1,000 ML IV ONE (12:43)
--- NOTE | 2019-11-30 12:46 | ER Document Report ---
ED Medical Screen (RME) - General Chief Complaint: Flank Pain Stated Complaint: FLANK PAIN Time Seen by Provider: 11/30/19 12:42 Primary Care Provider: [facility] [Primary Care Provider] - Follow up as needed TRAVEL OUTSIDE OF THE [place] IN LAST 30 DAYS: No - HPI Notes: 11/30/19 12:44 44-year-old male with a history of nephrolithiasis and has had 4 lithotripsies presents emergency room for complaints of left flank pain that started early this morning with nausea and. Patient states pain is 3 out of 5, intermittent and colicky. Reports some nausea when he is having severe pain. 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 Denies any chest pain shortness of breath, trauma to face flank area. Patient states he has had over "100 kidney stones" since he was in his teens. I have greeted and performed a rapid initial assessment of this patient. A comprehensive ED assessment and evaluation of the patient, analysis of test results and completion of the medical decision making process will be conducted by additional ED providers. PHYSICAL EXAMINATION: GENERAL: Well-appearing, well-nourished and in no acute distress. CV: s1, s2 regular LUNGS: No respiratory distress abd: L cva tenderness Musculoskeletal: Normal range of motion NEUROLOGICAL: Normal speech, normal gait. SKIN: Warm, Dry, normal turgor, no rashes or lesions noted. - Related Data Allergies/Adverse Reactions: No Known Allergies Allergy (Verified 07/01/18 19:09) Past Medical History - Past Medical History Cardiac Medical History: Reports: Hx Heart Attack - CABG x2, Hx Hypertension Endocrine Medical History: Reports: Hx Diabetes Mellitus Type 1 Renal/ Medical History: Reports: Hx Kidney Stones. Denies: Hx Peritoneal Dialysis GI Medical History: Reports: Hx Gastroesophageal Reflux Disease Past Surgical History: Reports: Hx Cardiac Catheterization, Hx Coronary Artery Bypass Graft, Hx Coronary Stent, Hx Kidney (Renal Surgery) Physical Exam - Vital signs Vitals: Temp Pulse Resp BP Pulse Ox 98.9 F 94 24 H 120/79 99 11/30/19 12:31 11/30/19 12:31 11/30/19 12:31 11/30/19 12:31 11/30/19 12:31 Course - Vital Signs Vital signs: Temp Pulse Resp BP Pulse Ox 98.9 F 94 24 H 120/79 99 11/30/19 12:31 11/30/19 12:31 11/30/19 12:31 11/30/19 12:31 11/30/19 12:31 Doctor's Discharge - Discharge Referrals: [facility] [Primary [facility]] - Follow up as needed
--- NOTE | 2019-11-30 14:05 | RADIOLOGY REPORT (SQ) ---
EXAM DESCRIPTION: U/S RETROPERITON (RENAL/AORTA) IMAGES COMPLETED DATE/TIME: 11/30/2019 1:56 pm REASON FOR STUDY: L flank pain, hx of kidney stones COMPARISON: CT dated 03/04/2018 TECHNIQUE: Dynamic and static grayscale images acquired of the kidneys and bladder and recorded on P ACS. Additional selected color Doppler and spectral images recorded. LIMITATIONS: None. FINDINGS: RIGHT KIDNEY: Normal size. Normal echogenicity. No solid or suspicious masses. No h ydronephrosis. Multiple nonobstructing right renal calculi. LEFT KIDNEY: Normal size. Normal echogenicity. No solid or suspicious masses. Dilatation of th e left renal pelvis. Multiple small stones. The largest measures 6.6 mm. BLADDER: No masses. OTHER FINDINGS: No other significant finding. IMPRESSION: Mild left-sided hydronephrosis. Obstructing lesion and/or stone is not identified. Cor relation with CT may be beneficial. Nonobstructing stones in both kidneys. TECHNICAL DOCUMENTATION: JOB ID: [id number] [employer]- All Rights Reserved Reading location - IP/workstation name: [email or web address]
[2019-11-30 14:06] LABS: ABSOLUTE EOSINOPHILS # (AUTO) 0.1 10^3/uL (0.0-0.6); ABSOLUTE LYMPHOCYTES (AUTO) 1.4 10^3/uL (0.5-4.7); ABSOLUTE MONOCYTES (AUTO) 0.5 10^3/uL (0.1-1.4); ABSOLUTE NEUT (AUTO) 5.5 10^3/uL (1.7-8.2); BASOPHILS % (AUTO) 0.4 % (0-2); HEMATOCRIT 45.3 % (37.9-51.0); HEMOGLOBIN 15.2 g/dL (13.5-17.0); LYMPHOCYTES % (AUTO) 19.1 % (13-45); MEAN CORPUSCULAR HEMOGLOBIN 30.6 pg (27.0-33.4); MEAN CORPUSCULAR HGB CONC 33.6 g/dL (32.0-36.0); MEAN CORPUSCULAR VOLUME 91 fl (80-97); MONOCYTES % (AUTO) 6.9 % (3-13); PLATELET COUNT 193 10^3/uL (150-450); RED BLOOD COUNT 4.98 10^6/uL (4.35-5.55); RED CELL DISTRIBUTION WIDTH 14.2 % (11.5-14.0); SEGMENTED NEUTROPHILS % (AUTO) 72.6 % (42-78); TOTAL CELLS COUNTED % (AUTO) 100 %; WHITE BLOOD COUNT 7.5 10^3/uL (4.0-10.5)
[2019-11-30 14:09] LABS: APPEARANCE,URINE CLEAR; BILIRUBIN,URINE NEGATIVE (NEGATIVE); COLOR,URINE STRAW; GLUCOSE, URINE 150 mg/dL (NEGATIVE); KETONES,URINE NEGATIVE (NEGATIVE); LEUKOCYTE ESTERASE,URINE NEGATIVE (NEGATIVE); NITRITE,URINE NEGATIVE (NEGATIVE); PROTEIN,URINE NEGATIVE (NEGATIVE); URINE SPECIFIC GRAVITY 1.008; UROBILINOGEN,URINE NEGATIVE mg/dL (<2.0)
[2019-11-30 14:29] LABS: ALBUMIN 4.2 g/dL (3.5-5.0); ALKALINE PHOSPHATASE 132 U/L (38-126); ANION GAP 6 (5-19); ASPARTATE AMINO TRANSFERASE 29 U/L (17-59); BILIRUBIN,TOTAL 0.8 mg/dL (0.2-1.3); BLOOD UREA NITROGEN 16 mg/dL (7-20); CALCIUM 9.7 mg/dL (8.4-10.2); CARBON DIOXIDE 29 mmol/L (22-30); CHLORIDE 104 mmol/L (98-107); GLUCOSE 170 mg/dL (75-110); TOTAL PROTEIN 7.3 g/dL (6.3-8.2)
[2019-11-30] MEDS ORDERED: MORPHINE SULFATE 10 MG/ML INJ IV ONE (15:34)
--- NOTE | 2019-11-30 15:39 | ER Document Report ---
ED GI/ - General Chief Complaint: Flank Pain Stated Complaint: FLANK PAIN Time Seen by Provider: 11/30/19 12:42 Primary Care Provider: [facility] [Provider Group] - Follow up in 3-5 days [facility] [Primary Care Provider] - Follow up as needed Mode of Arrival: Ambulatory Information source: Patient Notes: Patient presents complaint of left flank pain that radiates around to left lower quadrant that started today. Patient reports nausea. Patient denies any fever. Patient states he does have a history of kidney stones and is concerned about this today. Patient has not seen an urologist in many years. TRAVEL OUTSIDE OF THE [place] IN LAST 30 DAYS: No - HPI Patient complains to provider of: Abdominal pain, Flank pain. No: Vomiting Onset: This morning Timing/Duration: Persistent Quality of pain: Sharp Pain Level: 4 Location: LLQ, Left flank Associated symptoms: Nausea. denies: Blood in stool, Constipation, Diarrhea, Dysuria, Urinary hesitancy, Urinary frequency, Urinary retention, Urinary urgency, Vomiting Exacerbated by: Denies Relieved by: Denies Similar symptoms previously: Yes Recently seen / treated by doctor: No - Related Data Allergies/Adverse Reactions: No Known Allergies Allergy (Verified 07/01/18 19:09) Past Medical History - General Information source: Patient - Social History Smoking Status: Never Smoker Frequency of alcohol use: None Drug Abuse: None Occupation: None Lives with: Family Family History: Hypertension - Past Medical History Cardiac Medical History: Reports: Hx Coronary Artery Disease, Hx Heart Attack - CABG x2, Hx Hypertension Endocrine Medical History: Reports: Hx Diabetes Mellitus Type 1 Renal/ Medical History: Reports: Hx Kidney Stones. Denies: Hx Peritoneal Dialysis GI Medical History: Reports: Hx Gastroesophageal Reflux Disease Past Surgical History: Reports: Hx Cardiac Catheterization, Hx Coronary Artery Bypass Graft, Hx Coronary Stent, Hx Kidney (Renal Surgery) Review of Systems - Review of Systems Constitutional: No symptoms reported. denies: Fever EENT: No symptoms reported Cardiovascular: No symptoms reported. denies: Chest pain Respiratory: No symptoms reported. denies: Cough Gastrointestinal: Abdominal pain, Nausea. denies: Vomiting Genitourinary: Flank pain. denies: Dysuria, Hematuria Male Genitourinary: No symptoms reported Musculoskeletal: Back pain Skin: No symptoms reported Hematologic/Lymphatic: No symptoms reported Neurological/Psychological: No symptoms reported Physical Exam - Vital signs Vitals: Temp Pulse Resp BP Pulse Ox 98.9 F 94 24 H 120/79 99 11/30/19 12:31 11/30/19 12:31 11/30/19 12:31 11/30/19 12:31 11/30/19 12:31 - General General appearance: Appears well, Alert In distress: None - HEENT Head: Normocephalic, Atraumatic Eyes: Normal Conjunctiva: Normal Nasal: Normal Mouth/Lips: Normal Mucous membranes: Normal Neck: Normal, Supple. No: Lymphadenopathy - Respiratory Respiratory status: No respiratory distress Chest status: Nontender Breath sounds: Normal. No: Rales, Rhonchi, Stridor, Wheezing Chest palpation: Normal - Cardiovascular Rhythm: Regular Heart sounds: S1 appreciated, S2 appreciated Murmur: No - Abdominal Inspection: Normal Distension: No distension Bowel sounds: Normal Tenderness: Tender - Left lower quadrant Organomegaly: No organomegaly - Back Back: CVA tenderness - Left-sided - Extremities General upper extremity: Normal inspection, Nontender, Normal strength General lower extremity: Normal inspection, Nontender, Normal strength - Neurological Neuro grossly intact: Yes Cognition: Normal Randa Coma Scale Eye Opening: Spontaneous Randa Coma Scale Verbal: Oriented [place] Coma Scale Motor: Obeys Commands Randa Coma Scale Total: 15 - Psychological Associated symptoms: Normal affect, Normal mood - Skin Skin Temperature: Warm Skin Moisture: Dry Skin Color: Normal Course - Re-evaluation Re-evalutation: 11/30/19 16:41 Patient reports that pain is improved at this time. Patient states that pain is improved at this time. Patient reports nausea improved as well. Patient with CT report findings consistent with a recently passed stone. Patient without any UTI or leukocytosis. Patient does have mild elevation of creatinine although he chronically has mildly elevated creatinine and today's results are improved in comparison. Patient encouraged to follow-up with urology for further evaluation as he does have incidental right intrarenal stones as well. - Vital Signs Vital signs: Temp Pulse Resp BP Pulse Ox 98.7 F 78 18 126/76 H 99 11/30/19 17:19 11/30/19 17:19 11/30/19 17:19 11/30/19 17:19 11/30/19 17:19 - Laboratory Result Diagrams: 11/30/19 13:15 11/30/19 13:15 Laboratory results interpreted by me: 11/30/19 11/30/19 11/30/19 13:15 13:15 13:15 RDW 14.2 H Creatinine 1.35 H Est GFR (MDRD) Non-Af 57 L Glucose 170 H Alkaline Phosphatase 132 H Urine Glucose (UA) 150 H Urine Blood MODERATE H 11/30/19 16:41 Labs- All tests 24 hr 11/30/19 11/30/19 11/30/19 13:15 13:15 13:15 WBC 7.5 RBC 4.98 Hgb 15.2 Hct 45.3 MCV 91 MCH 30.6 MCHC 33.6 RDW 14.2 H Plt Count 193 Lymph % (Auto) 19.1 [place] % (Auto) 6.9 Eos % (Auto) 1.0 Baso % (Auto) 0.4 Absolute Neuts (auto) 5.5 Absolute Lymphs (auto) 1.4 Absolute Monos (auto) 0.5 Absolute Eos (auto) 0.1 Absolute Basos (auto) 0.0 Seg Neutrophils % 72.6 Sodium 138.5 Potassium 5.0 Chloride 104 Carbon Dioxide 29 Anion Gap 6 BUN 16 Creatinine 1.35 H Est GFR ( Amer) > 60 Est GFR (MDRD) Non-Af 57 L Glucose 170 H Calcium 9.7 Total Bilirubin 0.8 Direct Bilirubin 0.0 Neonat Total Bilirubin Not Reportable Neonat Direct Bilirubin Not Reportable Neonat Indirect Bili Not Reportable AST 29 ALT 23 Alkaline Phosphatase 132 H Total Protein 7.3 Albumin 4.2 Urine Color STRAW Urine Appearance CLEAR Urine pH 6.0 Ur Specific Flora 1.008 Urine Protein NEGATIVE Urine Glucose (UA) 150 H Urine Ketones NEGATIVE Urine Blood MODERATE H Urine Nitrite NEGATIVE Urine Bilirubin NEGATIVE Urine Urobilinogen NEGATIVE Ur Leukocyte Esterase NEGATIVE Urine WBC (Auto) 1 Urine RBC (Auto) 16 Urine Mucus (Auto) RARE Urine Ascorbic Acid NEGATIVE - Diagnostic Test Radiology reviewed: Reports reviewed Discharge - Discharge Clinical Impression: Flank pain, Kidney stone Condition: Stable Disposition: HOME, SELF-CARE Additional Instructions: Return immediately for any new or worsening symptoms Followup with your primary care provider, call tomorrow to make a followup appointment Follow-up with urology for further evaluation KIDNEY STONE: You are passing or have passed a kidney stone. These stones are usually due to increased calcium or uric acid concentrations in your urine. Stones within the kidney itself are not painful. The pain occurs as the stone leaves the kidney to pass down the long tube, called the ureter, leading to the bladder. If the stone is small, it will usually pass by itself. Most patients can pass the stone at home. You will usually receive medications for pain, nausea or vomiting, and sometimes a medication to assist in passing the kidney stone. However, if the pain is very severe or if vomiting prevents you from taking oral pain medications, you may need to return for further treatment. Drink three or four quarts of fluids per day. You will be given pain medication (if needed) and urine strainers. Strain all your urine to see if the stone passes. If your doctor has asked you to bring the stone in for analysis, return with the stone once it has passed. Return if pain or vomiting become severe, if you develop a high fever, if you are unable to pass your urine, or if other unusual symptoms occur. TORADOL INJECTION: You have been given an injection of ketorolac tromethamine (Toradol). This is an excellent, safe drug for pain control. It also has potent antiinflammatory action. You should have significant pain relief within about one hour. Toradol is not addicting and is non-sedating. It does not interfere with driving or work. Call or return if you develop itching, hives, shortness of breath, or rash. PAIN MEDICATION INJECTION: You have received an injection of a pain medication. You should experience significant pain relief within 45 minutes. This drug is a narcotic -- it will impair your judgement, slow your reaction time and make you sleepy (as well as relieve your pain). Narcotics also can cause nausea. You should not drive, work with machinery, or perform any task requiring mental alertness until all effects of the medication are gone -- six to eight hours. Do not take any alcohol, or sedatives, and do not take any other medication without checking with your physician. ANTINAUSEA MEDICATION: You have been given a medication to suppress nausea and vomiting. This type of medication can be given as a shot, pill, or suppository. It will usually last for many hours. Pills and shots usually last six to eight hours, suppositories last about 12 hours. For the typical illness, only one or two doses of the medication may be necessary. Mild lightheadedness may occur. This type of medicine can cause drowsiness. Do not drive or operate dangerous machinery while under its influence. Do not mix with alcohol. See your doctor at once if you have muscle spasms or tightness, or uncontrollable motions (particularly of the neck, mouth, or jaw). Persistent vomiting or severe lightheadedness should also be evaluated by the physician. FOLLOW-UP CARE: If you have been referred to a physician for follow-up care, call the physicia ns office for an appointment as you were instructed or within the next two days. If you experience worsening or a significant change in your symptoms, notify the physician immediately or return to the Emergency Department at any time for re-evaluation. Prescriptions: Ondansetron [Zofran Odt 4 mg Tablet] 1 tab PO Q6H #15 tab.rapdis Referrals: [facility] [Primary Care Provider] - Follow up as needed [facility] [Provider Group] - Follow up in 3-5 days
--- NOTE | 2019-11-30 16:15 | RADIOLOGY REPORT (SQ) ---
EXAM DESCRIPTION: CT ABD/PELVIS NO ORAL OR IV IMAGES COMPLETED DATE/TIME: 11/30/2019 4:01 pm REASON FOR STUDY: L flank, LLQ pain COMPARISON: 03/04/2018 TECHNIQUE: CT scan of the abdomen and pelvis performed without intravenous or oral contrast. Images reviewed with lung, soft tissue, and bone windows. Reconstructed coronal and sagittal MPR images revi ewed. All images stored on PACS. All CT scanners at this facility use dose modulation, iterative reconstruction, and/or weight based d osing when appropriate to reduce radiation dose to as low as reasonably achievable (ALARA). [facility]: Dose Right [facility]: CareDose [facility]: Dose Right [facility]: Teradose 4D [facility]: Smart OrderMotion RADIATION DOSE: CT Rad equipment meets quality standard of care and radiation dose reduction techniq ues were employed. CTDIvol: 5.1 mGy. DLP: 262 mGy-cm.mGy. LIMITATIONS: None. FINDINGS: LOWER CHEST: No significant findings. No nodules or infiltrates. NON-CONTRASTED LIVER, SPLEEN, ADRENALS: Evaluation limited by lack of IV contrast. No identified sign ificant masses. PANCREAS: No masses. No peripancreatic inflammatory changes. GALLBLADDER: No identified stones by CT criteria. No inflammatory changes to suggest cholecystitis. RIGHT KIDNEY AND URETER: No suspicious masses. Assessment limited by lack of IV contrast. Renal mayra culi measuring up to 10 mm. No hydronephrosis or hydroureter. LEFT KIDNEY AND URETER: No suspicious masses. Assessment limited by lack of IV contrast. No signifi cant calcifications. Mild-moderate hydronephrosis and hydroureter. AORTA AND RETROPERITONEUM: No aneurysm. No retroperitoneal masses or adenopathy. BOWEL AND PERITONEAL CAVITY: No obvious masses or inflammatory changes. No free fluid. APPENDIX: Not visualized. PELVIS, BLADDER, AND ABDOMINAL WALL:No abnormal masses. No free fluid. Bladder normal. BONES: No significant findings. OTHER: No other significant finding. IMPRESSION: Left hydronephrosis and hydroureter, presumably due to recent stone passage. COMMENT: Quality ID # [id number]: Final reports with documentation of one or more dose reduction techniques (e.g., Automated exposure control, adjustment of the mA and/or kV according to patient size, use of iterative reconstruction technique) TECHNICAL DOCUMENTATION: JOB ID: [id number] [employer]- All Rights Reserved Reading location - IP/workstation name: [email or web address]
[2019-11-30 17:20] VITALS: BP 126/76
== END 2019-11-30 17:31 | disposition home or self-care (01) ==
LOC: ER 12:17
DX: N20.0 Calculus of kidney (principal); N13.30 Unspecified hydronephrosis; R10.32 Left lower quadrant pain; R10.9 Unspecified abdominal pain; R10.814 Left lower quadrant abdominal tenderness; R11.0 Nausea; M54.9 Dorsalgia, unspecified; I25.10 Atherosclerotic heart disease of native coronary artery without angina pectoris; I10 Essential (primary) hypertension; E10.9 Type 1 diabetes mellitus without complications; Z87.442 Personal history of urinary calculi; Z87.19 Personal history of other diseases of the digestive system; Z95.5 Presence of coronary angioplasty implant and graft; Z95.1 Presence of aortocoronary bypass graft
CPT/HCPCS: 99284; 96361; 96374; 96375; 36415; 85025; 80053; 81001; 76770; 74176; J1885; J2270; J7030